=== PATIENT | male | born 1980 | race Caucasian/White ===

== ENCOUNTER 2019-01-28 15:26 | Emergency (ER) | payer OTHER ==
[2019-01-28] MEDS ORDERED: KETOROLAC 60 MG/2 ML VIAL IM STA (15:54)
[2019-01-28] MEDS ORDERED: CYCLOBENZAPRINE 10 MG TABLET PO STA (15:54)
[2019-01-28] MEDS ORDERED: oxyCODONE 5 MG TABLET PO STA (15:54)
--- NOTE | 2019-01-28 16:00 | ED Physician Documentation ---
PD HPI BACK PAIN - Stated complaint Stated Complaint: BACK PX - Chief complaint Chief Complaint: Back Pain - History obtained from History obtained from: Patient - History of Present Illness Timing - onset: Yesterday Timing - details: Gradual onset Pain level max: 8 Pain level now: 8 Location: Lower, Right, Left Quality: Pain, Spasm, Similar to prior episodes Associated symptoms: No: Fever, Weakness, Numbness, Incontinent of urine, Unable to urinate, Hematuria, Incontinent of stool Improves with: Rest Worsened by: Movement, Lifting Contributing factors: Lifting (pieces of wood) Recently seen: Not recently seen - Additional information Additional information: 38-year-old male presents the emergency department with low back pain. Started yesterday after moving wood. Nonradiating. Worse with movement and better with rest. Similar to prior episodes in the past. Took a Vicodin this morning without relief. Review of Systems Constitutional: denies: Fever, Chills Cardiac: denies: Chest pain / pressure Respiratory: denies: Dyspnea GI: denies: Vomiting, Diarrhea : denies: Dysuria, Unable to Void, Incontinent Skin: denies: Rash Musculoskeletal: denies: Neck pain PD PAST MEDICAL HISTORY - Past Medical History Past Medical History: Yes Musculoskeletal: Chronic back pain - Present Medications Home Medications: Ambulatory Orders Medication Instructions Recorded Confirmed Cyclobenzaprine [Flexeril] 10 mg PO TID PRN #20 tablet 01/28/19 Meloxicam [Mobic] 15 mg PO DAILY PRN #20 tablet 01/28/19 Oxycodone HCl/Acetaminophen 1 - 2 each PO Q6H PRN #14 tablet 01/28/19 [Percocet 5-325 mg Tablet] - Social History Does the pt smoke?: Yes Smoking Status: Current every day smoker Does the pt drink ETOH?: Yes Substance Use and Type: Marijuana - Family History Family history: reports: Non contributory PD ED PE NORMAL - Vitals Vital signs reviewed: Yes - General General: Alert and oriented X 3, No acute distress, Other (Morbidly obese male) - HEENT HEENT: Moist mucous membranes - Neck Neck: Supple, no meningeal sign - Cardiac Cardiac: RRR - Respiratory Respiratory: No respiratory distress, Clear bilaterally - Back Back: Other (No midline tenderness palpation. Paraspinal spasm the lumbar. Tender palpation bilateral. ) - Derm Derm: Warm and dry - Extremities Extremities: Other (Normal bilateral lower extremity patellar and ankle jerk reflexes. Normal great toe extension bilaterally. no saddle anesthesia) - Neuro Neuro: Alert and oriented X 3, No motor deficit, No sensory deficit Results - Vitals Vitals: Vital Signs - 24 hr 01/28/19 01/28/19 15:38 16:39 Temperature 36.7 C 36.2 C L Heart Rate 87 79 Respiratory 20 22 Rate Blood Pressure 181/107 H 146/96 H O2 Saturation 98 97 Oxygen O2 Source Room air PD MEDICAL DECISION MAKING - ED course Complexity details: re-evaluated patient, considered differential (No cauda equina, no spinal epidural abscess, no fracture, no aortic dissection or evidence of aneursym rupture), d/w patient ED course: Pain improving in the emergency department after medication. Appears to be muscle spasm. Similar prior episodes. No evidence of cauda equina, epidural abscess. No evidence of fracture. Ambulating well. We will continue supportive care and follow-up with his doctor. Will place on pain medication and muscle relaxants for home. Patient counseled regarding signs and symptoms for which I believe and urgent re-evaluation would be necessary. Patient with good understanding of and agreement to plan and is comfortable going home at this time This document was made in part using voice recognition software. While efforts are made to proofread this document, sound alike and grammatical errors may occur. Departure - Departure Disposition: 01 Home, Self Care Clinical Impression: Low back strain Qualifiers: Encounter type: initial encounter Qualified Code(s): S39.012A - Strain of muscle, fascia and tendon of lower back, initial encounter Condition: Good Instructions: ED Low Back Pain Injury Follow-Up: your,doctor in 1 week [Other] Prescriptions: Cyclobenzaprine [Flexeril] 10 mg PO TID PRN #20 tablet PRN Reason: Spasms Meloxicam [Mobic] 15 mg PO DAILY PRN #20 tablet PRN Reason: pain Oxycodone HCl/Acetaminophen [Percocet 5-325 mg Tablet] 1 - 2 each PO Q6H PRN #14 tablet PRN Reason: pain Comments: Use the medications as needed for pain. Return if you worsen. This should improve over the next week. Do not drink alcohol or drive while on narcotic pain medicine. Note that many narcotic pain relievers also contain tylenol/acetaminophen. Please ensure that your total dose of acetaminophen from all sources does not exceed 3 grams (3000mg) per day. You may constipated on this medication, take a stool softener such as "Colace" twice a day while you are on it. Also recommend a [id number] laxative such as senna or MiraLAX any day that you do not have a bowel movement. If you received narcotic pain medication in the emergency department, do not drive or operate machinery for the next 24 hours. Discharge Date/Time: 01/28/19 16:40
[2019-01-28 16:40] VITALS: BP 146/96
== END 2019-01-28 16:40 | disposition home or self-care (01) ==
LOC: ED 15:26
DX: S39.012A Strain of muscle, fascia and tendon of lower back, initial encounter (principal); X50.0XXA Overexertion from strenuous movement or load, initial encounter; Y93.89 Activity, other specified; F17.200 Nicotine dependence, unspecified, uncomplicated
CPT/HCPCS: 96372; 99283; 99284; A9270

== ENCOUNTER 2019-12-04 09:01 | Emergency (ER) | payer MEDICAID, OTHER ==
--- NOTE | 2019-12-04 09:50 | ED Physician Documentation ---
PD HPI BACK PAIN - Stated complaint Stated Complaint: BACK PX, ABD PX - Chief complaint Chief Complaint: Back Pain - History obtained from History obtained from: Patient - History of Present Illness Timing - onset: Yesterday Timing - duration: Days (2) Timing - details: Gradual onset, Still present Location: Mid Quality: Spasm, Aching Associated symptoms: No: Fever, Weakness, Numbness, Incontinent of urine Contributing factors: No: Lifting, Twisting Similar symptoms before: Has not had sx before Recently seen: Not recently seen Review of Systems Constitutional: reports: Fatigue. denies: Fever, Chills Nose: denies: Rhinorrhea / runny nose, Congestion Throat: denies: Sore throat Respiratory: denies: Cough GI: reports: Nausea, Vomiting. denies: Diarrhea Musculoskeletal: reports: Back pain (chronic in upper abd.). denies: Neck pain Neurologic: reports: Generalized weakness Endocrine: denies: Weight loss PD PAST MEDICAL HISTORY - Past Medical History Cardiovascular: Hypertension Respiratory: None Neuro: None Endocrine/Autoimmune: None Musculoskeletal: Chronic back pain - Present Medications Home Medications: Ambulatory Orders Medication Instructions Recorded Confirmed Cyclobenzaprine [Flexeril] 10 mg PO TID PRN #20 tablet 01/28/19 Meloxicam [Mobic] 15 mg PO DAILY PRN #20 tablet 01/28/19 Oxycodone HCl/Acetaminophen 1 - 2 each PO Q6H PRN #14 tablet 01/28/19 [Percocet 5-325 mg Tablet] Naproxen 500 mg PO BID #20 tablet 12/04/19 Oxycodone HCl/Acetaminophen 1 each PO Q6H PRN #25 tablet 12/04/19 [Percocet 5-325 mg Tablet] dexAMETHasone [Decadron] 4 mg PO DAILY #5 tablet 12/04/19 methocarbamoL [Robaxin] 500 mg PO Q6H PRN #30 tablet 12/04/19 - Allergies Allergies/Adverse Reactions: Allergies Allergy/AdvReac Type Severity Reaction Status Date / Time Anesthetics - Amide Type Allergy Anaphylaxis Verified 12/04/19 09:12 - Social History Does the pt smoke?: Yes Smoking Status: Current every day smoker Does the pt drink ETOH?: Yes PD ED PE NORMAL - Vitals Vital signs reviewed: Yes - General General: Alert and oriented X 3, No acute distress, Well developed/nourished - HEENT HEENT: Ears normal, Pharynx benign. No: Moist mucous membranes - Neck Neck: Supple, no meningeal sign, No adenopathy - Cardiac Cardiac: No murmur. No: RRR - Respiratory Respiratory: Clear bilaterally - Abdomen Abdomen: Soft, Non tender Results - Vitals Vitals: Vital Signs - 24 hr 12/04/19 12/04/19 09:08 10:17 Temperature 36.9 C Heart Rate 78 64 Respiratory 20 18 Rate Blood Pressure 149/109 H 136/57 H O2 Saturation 98 97 Oxygen O2 Source Room air PD MEDICAL DECISION MAKING - ED course Complexity details: reviewed results, re-evaluated patient, considered differential, d/w patient Departure - Departure Disposition: Home, Self Care Clinical Impression: Lower back pain Qualifiers: Chronicity: acute Back pain laterality: bilateral Sciatica presence: without sciatica Qualified Code(s): M54.5 - Low back pain Umbilical hernia Qualifiers: Obstruction and gangrene presence: without obstruction or gangrene Qualified Code(s): K42.9 - Umbilical hernia without obstruction or gangrene Condition: Stable Record reviewed to determine appropriate education?: Yes Instructions: ED Spasm Back No Trauma, ED Hernia Inguinal Follow-Up: Tolu Boykin MD [Provider Admit Priv/Credential] - [facility] [Provider Group] Prescriptions: dexAMETHasone [Decadron] 4 mg PO DAILY #5 tablet Naproxen 500 mg PO BID #20 tablet Oxycodone HCl/Acetaminophen [Percocet 5-325 mg Tablet] 1 each PO Q6H PRN #25 tablet PRN Reason: pain methocarbamoL [Robaxin] 500 mg PO Q6H PRN #30 tablet PRN Reason: Spasms Comments: Heat and gentle stretching for the low back. When your back is feeling better, do abdominal muscle strengthening exercises and good range of motion for the back as well. Anti-inflammatories of naproxen 2-3 times daily and Decadron steroid daily as directed. Robaxin muscle relaxant for stiffness and spasm. To that add Tylenol every 4-6 hours or oxycodone if needed for worse pain. Recheck if not improving well over the next several days and resolved within several days to week. Follow-up with general surgery clinic regarding it discussion about your umbilical hernia repair. Return if it is becomes hard, painful and not reducible as we discussed. Discharge Date/Time: 12/04/19 10:43
[2019-12-04] MEDS ORDERED: DEXAMETHASONE 10 MG/ML VIAL PO STA (10:02)
[2019-12-04] MEDS ORDERED: methocarbamoL 500 MG TABLET PO STA (10:02)
[2019-12-04] MEDS ORDERED: KETOROLAC 60 MG/2 ML VIAL IM STA (10:02)
[2019-12-04] MEDS ORDERED: HYDROmorphone 2 MG/ML VIAL IM STA (10:02)
[2019-12-04] MEDS ORDERED: CHERRY SYRUP 10 ML UDC PO ONE (10:02)
[2019-12-04 10:19] VITALS: BP 136/57
== END 2019-12-04 10:43 | disposition home or self-care (01) ==
LOC: ED 09:01
DX: M54.5 Low back pain (principal); K42.9 Umbilical hernia without obstruction or gangrene; F17.200 Nicotine dependence, unspecified, uncomplicated; I10 Essential (primary) hypertension; G89.29 Other chronic pain
CPT/HCPCS: 96372; 99283; 99284; A9270; J1170